=== PATIENT | male | born 1955 | race Caucasian/White ===

== ENCOUNTER → 2017-01-11 | Outpatient (CLI) | payer BC, OTHER ==
--- NOTE | 2017-01-13 11:59 | CT ---
CT OF THE PARANASAL SINUSES WITHOUT IV CONTRAST: CLINICAL INDICATION: Chronic sinusitis TECHNIQUE: Multiple-row detector helical CT examination of the paranasal sinuses without IV contrast. Axial, sagittal, and coronal reconstructed images. Dose reduction techniques including Automated Exp osure Control (AEC) and adjustment of mA and kV were utlized. COMPARISON: None. FINDINGS: Limited intracranial images are normal. Nasopharyngeal soft tissues are normal. Mastoid and middle ea r complexes are clear. Frontal sinuses are clear. Maxillary sinuses and ostia are clear. Bilaterally, the anterior ethmoids are clear. Posterior ethmoids and sphenoid chambers are clear. Nasal septum de viation to the right. No significant induration of the facial soft tissues or retro-antral fat. Anter ior and central skull base ayala are intact. IMPRESSION: 1. Paranasal sinuses are clear without imaging findings of acute or chronic sinusitis. Reported By:
== END ==
LOC: RAD 14:03
PROVIDERS: ATTEND Nurse Practitioner Family
DX: J32.0 Chronic maxillary sinusitis (principal); J01.01 Acute recurrent maxillary sinusitis; R51 Headache; Z85.818 Personal history of malignant neoplasm of other sites of lip, oral cavity, and pharynx
CPT/HCPCS: 70486